=== PATIENT | male | born 1990 | race Hispanic/Latino ===

== ENCOUNTER → 2020-07-26 | Outpatient (CLI) | payer BC | END | disposition home or self-care (01) | LOC: RAH 16:02 | PROVIDERS: ATTEND Physical Medicine & Rehabilitation | DX: M41.85 Other forms of scoliosis, thoracolumbar region (principal); M54.5 Low back pain | CPT/HCPCS: 72082; 72114 ==

== ENCOUNTER → 2020-07-30 | Outpatient (CLI) | payer BC | END | disposition home or self-care (01) | LOC: RAH 13:45 → EDUNIT# 08-04 15:00 | PROVIDERS: ATTEND Physical Medicine & Rehabilitation | DX: M50.223 Other cervical disc displacement at C6-C7 level (principal); M25.80 Other specified joint disorders, unspecified joint | CPT/HCPCS: 72141 ==

== ENCOUNTER → 2020-09-23 | Outpatient (CLI) | payer BC | END | disposition home or self-care (01) | LOC: RAH 12:44 | PROVIDERS: ATTEND Physical Medicine & Rehabilitation | DX: M25.522 Pain in left elbow (principal) | CPT/HCPCS: 73221 ==